=== PATIENT | male | born 1945 | race Caucasian/White ===

== ENCOUNTER → 2016-10-16 | Outpatient (CLI) | payer OTHER, MEDICARE ==
--- NOTE | 2016-10-16 11:47 | DI ---
XR ESOPHAGRAM,10/16/2016 9:07 AM: Clinical History: Chronic cough. Previous Exam: None at this facility. Findings: Multiple images from an esophagram are obtained, and demonstrate small bilateral pharyngeal pouches. There is no evidence of Zenker's diverticulum. There was some prolonged pooling of contrast within th e vallecula and to a lesser degree within the performed sinuses. There is no prominence of the cricopharyngeus muscle. There is no aspiration during the examination. The patient was able to swallow a 13 mm barium tablet without incident. The gastroesophageal junction appears normal and visualized portions of the upper gastric cardia are unremarkable. The supine swallowing exercise revealed very few contractions of the esophagus.. The patient required multiple swallows to clear the pharynx. The caliber of the pharyngeal esophageal junction was somewhat reduced. This also appeared to be slig htly displaced leftward. Impression: 1. Very weak esophageal contractions. This is most likely secondary to presbyesophagus. 2. Slight leftward deviation of the pharyngeal esophageal junction with some mild decreased caliber o f the pharynx at this level. There was no problem swallowing a 13 mm barium tablet and contents appea r to pass readily through this area however, cannot rule out the possibility of a small stricture or an external mass causing mass effect. Consider CT neck with contrast for further evaluation. 3. Small bilateral pharyngeal pouches.
== END ==
LOC: RAD 09:02
PROVIDERS: ATTEND Family Medicine
DX: R05 Cough (principal)
CPT/HCPCS: 74220

== ENCOUNTER 2018-10-05 05:45 | Inpatient (IN) ==
[2018-10-05] MEDS ORDERED: Clindamycin 900mg (Premix) 900 MG/50 ML BAG IV ONE ×2 (05:46→05:58)
[2018-10-05] MEDS ORDERED: Lactated Ringers 1,000 ML PRIMARY IV ONE ×4 (05:46→16:37)
[2018-10-05] MEDS ORDERED: LIDOCAINE W/ SODIUM BICARB 0.5 ML SYR ONE (05:47)
[2018-10-05] MEDS ORDERED: Ketorolac Inj 30 MG, Morphine Inj (Ortho Cocktail) 4 MG, BUPivacaine Inj 0.25% PF 150 MG SPLASH ONE ×3 (05:58)
[2018-10-05] MEDS ORDERED: LIDOCAINE W/ SODIUM BICARB 0.5 ML SYR SUBD PRN (05:58)
[2018-10-05] MEDS ORDERED: BUPivacaine Liposome/PF (Exparel) Inj 20ml vial INFIL ONE ×2 (05:58→07:07)
[2018-10-05] MEDS ORDERED: Lactated Ringers 1,000 ML PRIMARY IV SCH (06:00)
[2018-10-05] MEDS ORDERED: Nasal Sanitizer POPSWAB ampule 3 AMP (Nozin) PREOP DOSE ENOS SCH (06:00)
[2018-10-05] MEDS ORDERED: Tranexamic Acid 1,000 MG in Sodium Chloride 0.9% 100 ML IV SCH (06:00)
[2018-10-05 06:09] LABS: BILIRUBIN,URINE NEGATIVE (NEG); CLARITY,URINE CLEAR (CLEAR); COLOR,URINE YELLOW (Y); GLUCOSE, URINE (UA) NEGATIVE (NEG); OCCULT BLOOD,URINE NEGATIVE (NEG); PROTEIN,URINE NEGATIVE (NEG); UROBILINOGEN,URINE 0.2 EU/dL (0.2)
[2018-10-05 06:14] LABS: URINE SAMPLE TYPE CLEAN CATCH URINE
[2018-10-05 06:16] LABS: BACTERIA,URINE RARE; RBC,URINE 0-1 /hpf; WBC,URINE 0-2
[2018-10-05] MEDS ORDERED: Sodium Chloride 0.9% vial 40 ML ONE (07:06)
[2018-10-05] MEDS ORDERED: HEPARIN 10,000 UNIT/1 ML ONE (07:07)
[2018-10-05] MEDS ORDERED: Gentamicin Inj 40 MG/ML VIAL ONE ×2 (07:07→07:23)
[2018-10-05] MEDS ORDERED: Sodium Chloride 0.9% 500 ML ONE (07:13)
[2018-10-05] MEDS ORDERED: Sodium Chloride 0.9% 2,000 ML PRIMARY IV ONE (07:13)
[2018-10-05] MEDS ORDERED: EPINEPHrine Inj (1:1,000) 1 mg/ml amp ONE (07:20)
[2018-10-05] MEDS ORDERED: fentaNYL Inj 100 MCG/2 ML VIAL ONE (07:21)
[2018-10-05] MEDS ORDERED: MIDAZOLAM HCL 2 MG/2 ML VIAL ONE (07:21)
[2018-10-05] MEDS ORDERED: ePHEDrine Inj 50 MG/ML AMP ONE (07:40)
[2018-10-05] MEDS ORDERED: LIDOCAINE HCL 2 % 10 ML JELLY URO-JECT TOPICAL ONE ×2 (07:42→08:24)
[2018-10-05] MEDS ORDERED: PROPOFOL 10 MG/1 ML (200 MG/20 ML) VIAL IV ONE ×4 (08:06→10:38)
[2018-10-05] MEDS ORDERED: Hetastarch 6% + NS 500 ML IV ONE (08:06)
[2018-10-05] MEDS ORDERED: TRANEXAMIC ACID 1,000 MG / 10 ML VIAL ONE (08:27)
--- NOTE | 2018-10-05 08:49 | CRNA.PROCE ---
Central Neuraxis Block [place] - - Safety Measures: Time Out Taken, Site Verified - - Type of Block: Subarachnoid Reason for Block: Surgical Moniters Used During Block: EKG, SPO2, NIBP Sedation Used - Enter Amount Used in Comment Field: Midazolam (mg): Yes (2), Fentanyl (mcg): Yes (50) Positioning: Sitting Skin Prep Used: ChloroPrep (Twice) Draped: Yes Skin Infiltration - Enter Amount Used in Comment Field: 1% Xylocaine (mL): Yes (1.5) Introducer User: 23 Gauge Spinal Needle Used: 25 Duane 80 mm (1 pass clear, free flow csf. birefringance with injection/aspiration. Left side down lying times 20 min post injection of local anesthetic.) Local Anesthetic - Enter Amount Used in Comment Field: 0.75 % Bupivacaine with Dextrose (ml): Yes (2) Additive Used - Enter Amount Used in Comment Field: Epinephrine 1:1000 Needle Rinse (mL): Yes (yes) Anesthesia Time - Other Weight: 53.252 kg Height: 6 ft Body Mass Index (BMI): 15.9
--- NOTE | 2018-10-05 08:50 | CRNA.PROGR ---
Anesthesia Time - Procedure/Recovery Time Start Date: 10/05/18 End Date: 10/05/18 Anesthesia : Time In: 07:57 Anesthesia : Time Out: 11:05 Anesthesia : Total Time: 188 - Block Time Start Date: 10/05/18 End Date: 10/05/18 PreOp Block : Time In: 07:23 PreOp Block : Time Out: 07:33 PreOp Block : Total Time: 10 - Total Anesthesia Time Total Anesthesia Time (minutes): 198 - Other Weight: 53.252 kg Height: 6 ft Body Mass Index (BMI): 15.9 Physical Status: P2 Anesthesia Type: Spinal Block
--- NOTE | 2018-10-05 08:50 | CRNA.PROGR ---
Anesthesia Recovery Phase I - Post Anesthesia Evaluation Patient's Condition on Arrival in Phase I: Stable Patient's Condition on Arrival in Phase II: Stable (required glycopyrolate, and fluids . Mentation gradually cleared.)
--- NOTE | 2018-10-05 08:50 | CRNA.PROGR ---
Post Anesthesia Phase II - Post Anesthesia Phase II Patient Stable and Discharged To: Med/Surg Care Assumed By Surgeon: Parminder Munoz MD Temperature: 97.8 F Pulse Rate: 57 Respiratory Rate: 18 Blood Pressure: 114/71 Pulse Ox: 95 Total Joss Score at Discharge: 9 Post Anesthesia Discharge Criteria Met: Yes
[2018-10-05] MEDS ORDERED: ROCURONIUM 10 MG/1 ML - 5 ML VIAL IVP ONE (09:56)
--- NOTE | 2018-10-05 10:50 | ORTHO.OP ---
- - -: See Dictated Operative Report Procedure Codes - Hip Procedures Primary Hip Procedure: 99050 : DIMITRI (yara SULTANA assisted)
[2018-10-05] MEDS: GLYCOPYRROLATE 0.2 MG/1 ML VIAL IVP ONE ×2 (11:15→11:17)
[2018-10-05] MEDS ORDERED: GLYCOPYRROLATE 0.2 MG/1 ML VIAL ONE ×2 (11:46→11:54)
[2018-10-05] MEDS ORDERED: Ondansetron ODT Tab 8 MG TAB PO PRN (13:24)
[2018-10-05] MEDS ORDERED: CALCIUM CARBONATE 500 MG (TUMS) CHEWABLE TABLET PO PRN (13:24)
[2018-10-05] MEDS ORDERED: diphenhydrAMINE 25 MG CAPSULE PO PRN (13:24)
[2018-10-05] MEDS ORDERED: HYDROcodone-APAP 7.5 MG-325 MG TABLET PO PRN (13:24)
[2018-10-05] MEDS ORDERED: MAG HYDROX/AL HYDROX/SIMETH 30 ML SUSP PO PRN (13:24)
[2018-10-05] MEDS ORDERED: BISACODYL 5 MG TABLET PO PRN (13:24)
[2018-10-05] MEDS ORDERED: HYDROmorphone 2 MG/1 ML IVP PRN (13:24)
[2018-10-05] MEDS ORDERED: Prochlorperazine Tab 10 MG TAB PO PRN (13:24)
[2018-10-05] MEDS ORDERED: ONDANSETRON 4 MG/2 ML VIAL IVP PRN (13:24)
[2018-10-05] MEDS ORDERED: BISACODYL 10 MG SUPPOSITORY RECTAL PRN (13:24)
[2018-10-05] MEDS: Clindamycin 900mg (Premix) 900 MG/50 ML BAG IV SCH ×2 (14:44→20:43)
--- NOTE | 2018-10-05 14:52 | EKG ---
[address] [address] Measurements Intervals [place] Rate: 53 P: 81 DE: 169 QRS: 81 QRSD: 102 T: 99 QT: 433 QTc: 415 Interpretive Statements SINUS BRADYCARDIA WITH SINUS ARRHYTHMIA Compared to ECG 08/23/2015 20:52:29 Left ventricular hypertrophy no longer present Electronically Signed On 10-05-18 16:51:11 MDT by Raphael Zamora [email or web address]
--- NOTE | 2018-10-05 15:07 | CONSULT ---
Consult Note - Consult Reason for Consult: PostOp Consulation : Ortho Primary Care Provider: YOUNG CAMPBELL - History of Present Illness History of Present Illness: Is a very nice 73-year-old gentleman comes in for hip fracture and he is status post repair he is bradycardia at 38 bpm. Talking to his from I did remember located in the records that we send him to [place] 3 years ago for empyema he underwent lung surgery and also was seen in [facility] [place] he is Been on losing weight as well. According to his . He denies chest pain nausea or vomiting Past Medical History Medical History: Crohn's disease, but has been off of medication since early part of July. No complaints of any symptoms consistent with exacerbation. Surgical History: 1. Left shoulder surgery Pertinent Family History: Unknown. Past Social History: Does not smoke and did not smoke in the past. for 27 years. Works as a rancher. Has 1 adopted son who apparently is not very healthy. Drinks a glass of wine occasionally with dinner. Tobacco Use: Never Smoker Do you dip or chew tobacco: Yes In the Past 12 Months, Have Used or Abuse Any of the Following Substance: None Review of Systems - Review of Systems All Systems: Reviewed & No Additional Complaints Except as Stated - Respiratory Respiratory: DENIES: Negative System Review, Cough, Sputum, Dyspnea At Rest, Dyspnea with Exertion, Pleuritic Pain, Hemoptysis, Wheezing, Other, See HPI - Cardiovascular Cardiovascular: DENIES: Negative System Review, Chest Pain, Edema, Syncope, Palpitations, Orthopnea, Paroxysmal Nocturnal Dyspnea, Other, See HPI Medication / Allergies Home Medications: Home Medications Medication Instructions Recorded Confirmed doxycycline hyclate 50 mg capsule 50 mg PO QDAY 08/13/18 10/05/18 Allergies/Adverse Reactions: Allergies Allergy/AdvReac Type Severity Reaction Status Date / Time Penicillins Allergy RASH Verified 10/05/18 13:27 codeine AdvReac Anaphylaxis Verified 10/05/18 13:27 Exam - Vitals Vital Signs: Vital Signs Temperature 97.5 F Temperature Source Temporal Artery Scan Pulse Rate [Pulse Oximeter] 60 Pulse Rate 48 Respiratory Rate 16 Blood Pressure [Left Arm] 116/74 Blood Pressure 127/74 Pulse Ox 98 Oxygen Flow Rate 3.5 Oxygen Delivery Method Nasal Cannula Height 6 ft Weight 117 lb 6.4 oz - General General Appearance: No Acute Distress, Cooperative, Thin - Respiratory Respiratory Exam: POSITIVE: Clear to Auscultation - Bilaterally, Breathing Non Labored, Normal To Percussion, Normal to Percussion and Palpation - Cardiovascular Cardiovascular Exam: POSITIVE: Bradycardia - GI/Abdominal GI/Abdominal Exam: POSITIVE: Normal Bowel Sounds, Non Tender, Non Distended, Soft, No Masses, No Hepatomegaly, No Splenomegaly, No Organomegaly - Extremities Extremities Exam: POSITIVE: No Clubbing Present, No Edema Present, No Cyanosis Present Assessment and Plan - Patient Problems (1) Bradycardia Current Visit: Yes Status: Acute Comment: First-degree AV block on EKG. Tylenol for his bradycardia secondary to anesthesia he is not on beta blockers I will repeat a CTA of his chest considering his history, I will also get a troponin and a magnesium level Code(s): R00.1 - Bradycardia, unspecified
[2018-10-05 15:19] LABS: BLOOD UREA NITROGEN 14 mg/dL (7-22); BUN/CREATININE RATIO 23.33 (6-20); SERUM ALBUMIN 2.5 g/dL (3.5-4.8)
[2018-10-05] MEDS ORDERED: Magnesium Sulfate 2gm (Premix) 2 GM/50 ML BAG IV ONE (16:37)
[2018-10-05] MEDS: Lactated Ringers 1,000 ML PRIMARY IV SCH (18:01)
[2018-10-05] MEDS: ASPIRIN EC 81 MG TABLET PO SCH (21:45)
[2018-10-05] MEDS: DOCUSATE 100 MG CAPSULE PO SCH (21:46)
--- NOTE | 2018-10-05 22:37 | DI ---
EXAM: CT Chest With Intravenous Contrast CLINICAL HISTORY: ITS.REASON bradycardia post surgery Physician Notes: Tech Comments: TECHNIQUE: Axial computed tomography images of the chest with intravenous contrast. MIP reconstructed images were created and reviewed. COMPARISON: No relevant prior studies available. FINDINGS: Lungs: No pulmonary embolus. Patchy irregular infiltrate in the left lower lobe. Peribronchial thickening. Debris in the airways. Pleural space: Trace right pleural fluid. Heart: No cardiomegaly. No pericardial effusion. Mediastinum: Possibly mild thickening in segments of the esophagus. Bones/joints: No acute fracture. Spinal ankylosis. Soft tissues: Unremarkable. Vasculature: Unremarkable. No thoracic aortic aneurysm. Lymph nodes: Subcarinal node and small hilar nodes. Spleen: Splenectomy. Other findings: Exam from 10/05/18 at 1610 IMPRESSION: 1. No pulmonary embolus. 2. Patchy irregular infiltrate in the left lower lobe.
[2018-10-06] MEDS: Clindamycin 900mg (Premix) 900 MG/50 ML BAG IV SCH (02:03)
[2018-10-06] MEDS: Lactated Ringers 1,000 ML PRIMARY IV SCH ×3 (02:12→23:20)
[2018-10-06] MEDS: ACETAMINOPHEN 325 MG TABLET PO PRN ×2 (05:30→13:40)
--- NOTE | 2018-10-06 05:38 | DI ---
LEFT HIP, 10/05/2018 10:50 AM: Clinical History: Status post left total hip replacement. Osteoarthritis. Previous Exam: 08/13/2018. Views: AP and crosstable lateral views of replaced hip. Patient is status post left total hip replacement. Prosthetic joint articulates normally. Drain tube present. Reading: Status post left total hip replacement. Prosthetic joint articulates normally.
[2018-10-06 05:39] LABS: BASOPHILS # (AUTO) 0.03 10*3/UL; BASOPHILS % (AUTO) 0.2 % (0-1); BLOOD UREA NITROGEN 12 mg/dL (7-22); BUN/CREATININE RATIO 17.14 (6-20); EOSINOPHILS # (AUTO) 0.01 10*3/UL; EOSINOPHILS % (AUTO) 0.1 % (0-8); Hematocrit [HCT] 33.8 % (42.0-52.0); Hemoglobin [HGB] 10.8 g/dL (14.0-18.0); LYMPHOCYTES # (AUTO) 0.88 10*3/uL; MEAN CORPUSCULAR HEMOGLOBIN 31.4 PG (27-31); MEAN CORPUSCULAR VOLUME 98.3 FL (80-90); MEAN PLATELET VOLUME 10.9 FL (7.4-12.2); MONOCYTES # (AUTO) 1.62 10*3/UL (0.3-0.8); MONOCYTES % (AUTO) 11.7 % (5-15); NEUTROPHILS # (AUTO) 11.24 10*3/UL; NEUTROPHILS % (AUTO) 81.5 % (50-80); RED BLOOD COUNT 3.44 10^6/uL (4.70-6.10)
[2018-10-06 05:41] LABS: PLATELET MORPHOLOGY COMMENT NORMAL MORPHOLOGY (NORM); RBC MORPHOLOGY COMMENT NORMAL MORPHOLOGY (NORM); WBC MORPHOLOGY COMMENT NORMAL MORPHOLOGY (NORM)
--- NOTE | 2018-10-06 07:37 | ORTHO.PROG ---
Last Taken Vital Signs: Vital Signs - Last Taken Temperature 98.9 F 10/06/18 04:15 Pulse Rate 92 10/06/18 04:15 Respiratory Rate 20 10/06/18 04:15 Blood Pressure 97/55 10/06/18 04:15 Pulse Ox 90 10/06/18 05:18 Subjective: Patient has leg stiff this morning doesn't want to take any oral or IV narcotics if we can help it would like to just try to take Motrin and Tylenol Objective: Leg with pain popliteal adductor hiatus pain. Drain this morning with about 20 mL since 2 AM. Had a fair amount out yesterday and last PM bike today very little motor and sensory exam is good otherwise negative pressure dressing in place was no active issues. Laboratory Results 10/05/18 10/05/18 10/05/18 06:50 14:55 14:55 WBC RBC Hgb Hct MCV MCH MCHC RDW Std Deviation RDW Coeff of Michael Plt Count MPV Immature Gran % (Auto) Neut % (Auto) Lymph % (Auto) [place] % (Auto) Eos % (Auto) Baso % (Auto) Immature Gran # (Auto) Neut # (Auto) Lymph # (Auto) [place] # (Auto) Eos # (Auto) Baso # (Auto) WBC Morphology Comment Plt Morphology Comment RBC Morph Comment Sodium Potassium Chloride Carbon Dioxide Anion Gap BUN Creatinine Estimated GFR BUN/Creatinine Ratio Glucose Calculated Osmolality Calcium Magnesium 1.7 Total Bilirubin AST ALT Alkaline Phosphatase Troponin I < 0.012 Total Protein Albumin Globulin Albumin/Globulin Ratio Blood Type A POSITIVE Antibody Screen Negative 10/05/18 10/06/18 10/06/18 14:55 04:31 04:31 WBC 13.80 H RBC 3.44 L Hgb 10.8 L Hct 33.8 L MCV 98.3 H MCH 31.4 H MCHC 32.0 L RDW Std Deviation 47.4 RDW Coeff of Michael 13.7 Plt Count 317 MPV 10.9 Immature Gran % (Auto) 0.1 Neut % (Auto) 81.5 H Lymph % (Auto) 6.4 L [place] % (Auto) 11.7 Eos % (Auto) 0.1 Baso % (Auto) 0.2 Immature Gran # (Auto) 0.02 Neut # (Auto) 11.24 Lymph # (Auto) 0.88 [place] # (Auto) 1.62 H Eos # (Auto) 0.01 Baso # (Auto) 0.03 WBC Morphology Comment Normal morphology Plt Morphology Comment Normal morphology RBC Morph Comment Normal morphology Sodium 139 134 L Potassium 4.4 4.4 Chloride 109 103 Carbon Dioxide 28 28 Anion Gap 2 L 3 L BUN 14 12 Creatinine 0.6 L 0.7 Estimated GFR [employer] BUN/Creatinine Ratio 23.33 H 17.14 Glucose 69 L 105 Calculated Osmolality 286.0 277.0 Calcium 8.6 L 8.1 L Magnesium Total Bilirubin 0.2 L AST 27 ALT 24 Alkaline Phosphatase 49 Troponin I Total Protein 4.7 L Albumin 2.5 L Globulin 2.2 L Albumin/Globulin Ratio 1.10 L Blood Type Antibody Screen 10/06/18 04:31 WBC RBC Hgb Hct MCV MCH MCHC RDW Std Deviation RDW Coeff of Michael Plt Count MPV Immature Gran % (Auto) Neut % (Auto) Lymph % (Auto) [place] % (Auto) Eos % (Auto) Baso % (Auto) Immature Gran # (Auto) Neut # (Auto) Lymph # (Auto) [place] # (Auto) Eos # (Auto) Baso # (Auto) WBC Morphology Comment Plt Morphology Comment RBC Morph Comment Sodium Potassium Chloride Carbon Dioxide Anion Gap BUN Creatinine Estimated GFR BUN/Creatinine Ratio Glucose Calculated Osmolality Calcium Magnesium 1.9 Total Bilirubin AST ALT Alkaline Phosphatase Troponin I Total Protein Albumin Globulin Albumin/Globulin Ratio Blood Type Antibody Screen Vital Signs (24 hrs) 10/05/18 11:00 10/05/18 13:00 10/05/18 13:24 Temperature 95.2 F L 97.2 F 97.4 F Pulse Rate 42 L 48 L Pulse Rate [Pulse Oximeter] 50 L Respiratory Rate 14 14 16 Blood Pressure 94/62 127/74 Blood Pressure [Left Arm] 124/77 Pulse Ox 100 100 99 10/05/18 13:50 10/05/18 15:57 10/05/18 19:00 Temperature 97.5 F 97.5 F Pulse Rate Pulse Rate [Pulse Oximeter] 60 48 L Respiratory Rate 16 16 Blood Pressure Blood Pressure [Left Arm] 116/74 136/29 Pulse Ox 98 100 10/05/18 19:13 10/05/18 23:39 10/06/18 02:27 Temperature 98.1 F 98.9 F 98.3 F Pulse Rate Pulse Rate [Pulse Oximeter] 64 84 77 Respiratory Rate 20 18 16 Blood Pressure Blood Pressure [Left Arm] 98/52 88/48 104/62 Pulse Ox 96 94 96 10/06/18 04:15 10/06/18 05:18 Temperature 98.9 F Pulse Rate Pulse Rate [Pulse Oximeter] 92 Respiratory Rate 20 Blood Pressure Blood Pressure [Left Arm] 97/55 Pulse Ox 92 90 Assessment: Left total hip replacement overall doing well Anemia Bradycardia and generalized low blood pressure Plan: Appreciate hospitalist evaluation. Begin physical therapy today. Mobilize with PT and OT. Pain control as needed written for different medications.
[2018-10-06] MEDS: IBUPROFEN 400 MG TABLET PO PRN ×2 (08:48→21:16)
[2018-10-06] MEDS: ASPIRIN EC 81 MG TABLET PO SCH ×2 (08:49→21:11)
--- NOTE | 2018-10-06 10:19 | PDOC(PROG) ---
Interval History: Patient is doing well no chest pain no nausea no vomiting Objective : Data - Labs CBC and BMP: 10/06/18 04:31 10/06/18 04:31 Objective : Exam - General General Appearance: Cooperative - Respiratory Respiratory Exam: Clear to Auscultation - Bilaterally, Breathing Non Labored, Normal To Percussion, Normal to Percussion and Palpation - Cardiovascular Cardiovascular Exam: RRR, No Murmur, No Clicks, No Gallops, No Rubs, PMI Non- Displaced - GI/Abdominal GI/Abdominal Exam: Normal Bowel Sounds, Non Tender, Non Distended, Soft, No Masses, No Hepatomegaly, No Splenomegaly, No Organomegaly - Extremities Extremities Exam: No Clubbing Present, No Edema Present Assessment and Plan - Patient Problems (1) Bradycardia Current Visit: Yes Status: Acute Comment: Today the bradycardia is improved and received IV fluids. He did have a little infiltrate on the left lower lobe on CAT scan this is very hard to discern if pneumonia or not considering the patient had an empyema on that side. I recommended down IV antibiotics to treat the pneumonia since the he does have a white count with a left shift and considering the he status post VATS high risk for denise pneumonia. The patient and his refused the antibi otics and they wanted me to consult with Dr. Zambrano in the [place] told her about the patient since she knows of the other CT scans that he had a [employer] she also recommended antibiotics to treat the pneumonia. They also wanted me to call Dr. Miller infectious disease in [place] I did call the phone calls were also be performed with the patient present Dr. Zacarias recommended to may be weight today repeat the white count in the morning if it's trending up then treat with Rocephin and Zithromax and if it's trending down maybe hold off on the treatment for pneumonia at this point the patient does not look septic has no cough his oxygenation is well I will hold off in the burns with Dr. Miller's recommendation Code(s): R00.1 - Bradycardia, unspecified (2) Status post hip replacement Current Visit: Yes Status: Acute Comment: Deferred Dr. Munoz Code(s): Z96.649 - Presence of unspecified artificial hip joint
[2018-10-06] MEDS: DOCUSATE 100 MG CAPSULE PO SCH ×2 (10:46→21:11)
[2018-10-06] MEDS ORDERED: Lactated Ringers 1,000 ML PRIMARY IV ONE (12:01)
[2018-10-06] MEDS: Cefepime Inj 2 GM in Sodium Chloride 0.9% 100 ML IV SCH ×2 (13:30→21:11)
--- NOTE | 2018-10-06 15:32 | CRNA.PROGR ---
Anesthesia Note - Progress Notes Anesthesia Progress Note: See Dr Simms and Dr James notes re: bradycardia and low blood pressure. Intake and Output (24hr x 4 totals) 10/04/18 10/05/18 10/06/18 10/07/18 05:59 05:59 05:59 05:59 Intake Total 4460 / 4460 2219 / 2219 Output Total 2130 / 2130 1999 / 1999 Balance 2330 / 2330 219 / 219 CBC and BMP 10/06/18 04:31 10/06/18 04:31 Vital Signs - Last Taken Temperature 98.4 F 10/06/18 13:00 Pulse Rate 76 10/06/18 13:00 Respiratory Rate 20 10/06/18 13:00 Blood Pressure 88/45 10/06/18 13:00 Pulse Ox 92 10/06/18 13:00 He's hypovolemic. Have no explanation for bradycardia, neither does Dr. Simms.
--- NOTE | 2018-10-06 16:41 | DI ---
MRI BRAIN SCAN WITHOUT IV CONTRAST, 10/06/2018 12:04 PM: Clinical History: Left arm weakness. Prior Exam: None at this facility. Comparison Exam: None. Sequences: Sagittal [id number]; axial T2 weighted and FLAIR. Axial diffusion weighted images with ADC mapping. 4th Ventricle: Normal. 3rd Ventricle: Mildly dilated, but normal for age. Lateral Ventricles: Moderately dilated. Sella: Normal size and normal pituitary gland. Cerebrum: No acute hemorrhagic or bland infarct noted. Specifically, no abnormality is seen in the ri ght motor strip near the convexity where the motor homunculus location for the arm is located. Multip le less than 5 mm punctate hyperintensities are scattered through posterior hemispheres in the white matter. They are not in the typical pattern of small vessel ischemic disease. Cerebellum: Normal. No cerebellopontine angle mass. Cerebellar Tonsils: Normal position. Brainstem: Normal. Diffusion Weighted Imaging: Normal. Atrophy: Mild cerebellar and cerebral atrophy. Extracerebral Mantles/Midline Shift: No extracerebral mantle or dural lesion. No midline shift. Sinuses: Normal. Readin. No acute hemorrhagic or bland infarct noted. No abnormality in the motor strip where the fibers f or the left arm originate. 2. Multiple punctate white matter hyperintensities scattered diffusely throughout both hemispheres. The exact etiology for this finding is uncertain. 3. Mild cerebral and cerebellar atrophy.
[2018-10-07] MEDS: Cefepime Inj 2 GM in Sodium Chloride 0.9% 100 ML IV SCH ×3 (04:11→21:12)
[2018-10-07 05:08] LABS: BASOPHILS # (AUTO) 0.06 10*3/UL; BASOPHILS % (AUTO) 0.4 % (0-1); EOSINOPHILS # (AUTO) 0.06 10*3/UL; EOSINOPHILS % (AUTO) 0.4 % (0-8); Hemoglobin [HGB] 10.2 g/dL (14.0-18.0); LYMPHOCYTES # (AUTO) 1.48 10*3/uL; MEAN CORPUSCULAR HEMOGLOBIN 31.2 PG (27-31); MEAN CORPUSCULAR HGB CONC 31.9 g/dL (33-37); MEAN CORPUSCULAR VOLUME 97.9 FL (80-90); MEAN PLATELET VOLUME 11.1 FL (7.4-12.2); MONOCYTES # (AUTO) 1.91 10*3/UL (0.3-0.8); MONOCYTES % (AUTO) 12.5 % (5-15); NEUTROPHILS # (AUTO) 11.74 10*3/UL; NEUTROPHILS % (AUTO) 76.7 % (50-80); RED BLOOD COUNT 3.27 10^6/uL (4.70-6.10)
[2018-10-07 05:19] LABS: PLATELET MORPHOLOGY COMMENT NORMAL MORPHOLOGY (NORM); RBC MORPHOLOGY COMMENT NORMAL MORPHOLOGY (NORM); WBC MORPHOLOGY COMMENT NORMAL MORPHOLOGY (NORM)
[2018-10-07 05:25] LABS: BLOOD UREA NITROGEN 9 mg/dL (7-22); SERUM ALBUMIN 2.6 g/dL (3.5-4.8)
--- NOTE | 2018-10-07 07:45 | ORTHO.PROG ---
Last Taken Vital Signs: Vital Signs - Last Taken Temperature 98.3 F 10/07/18 06:31 Pulse Rate 84 10/07/18 06:31 Respiratory Rate 16 10/07/18 06:31 Blood Pressure 104/62 10/07/18 06:31 Pulse Ox 91 10/07/18 06:31 Subjective: Patient states he feels fine had a good night's sleep. He has not used any pain medication except for Tylenol or Motrin Objective: Examination left leg show that the negative pressure dressing is in place his drain came out has a very mild amount of swelling to the lower extremity no distal swelling or edema. Popliteal or adductor hiatus pain. Rotation of the foot and ankle look good. Motor and sensory exam is nonfocal. Laboratory Results 10/07/18 10/07/18 04:17 04:17 WBC 15.29 H RBC 3.27 L Hgb 10.2 L Hct 32.0 L MCV 97.9 H MCH 31.2 H MCHC 31.9 L RDW Std Deviation 47.2 RDW Coeff of Michael 13.7 Plt Count 296 MPV 11.1 Immature Gran % (Auto) 0.3 Neut % (Auto) 76.7 Lymph % (Auto) 9.7 L [place] % (Auto) 12.5 Eos % (Auto) 0.4 Baso % (Auto) 0.4 Immature Gran # (Auto) 0.04 Neut # (Auto) 11.74 Lymph # (Auto) 1.48 [place] # (Auto) 1.91 H Eos # (Auto) 0.06 Baso # (Auto) 0.06 WBC Morphology Comment Normal morphology Plt Morphology Comment Normal morphology RBC Morph Comment Normal morphology Sodium 138 Potassium 3.8 Chloride 108 Carbon Dioxide 27 Anion Gap 3 L BUN 9 Creatinine 0.6 L Estimated GFR Assistant [employer] BUN/Creatinine Ratio 15.00 Glucose 83 Calculated Osmolality 283.0 Calcium 8.6 L Total Bilirubin 0.5 AST 38 ALT 22 Alkaline Phosphatase 49 Total Protein 5.2 L Albumin 2.6 L Globulin 2.6 Albumin/Globulin Ratio 1.00 L Vital Signs (24 hrs) 10/06/18 09:00 10/06/18 11:47 10/06/18 13:00 Temperature 99 F 98.4 F Pulse Rate [Pulse Oximeter] 69 76 Respiratory Rate 20 20 Blood Pressure [Left Arm] 84/49 79/42 Blood Pressure [Right Arm] 88/45 Pulse Ox 96 92 10/06/18 17:00 10/06/18 19:00 10/06/18 20:48 Temperature 98.2 F 98.1 F Pulse Rate [Pulse Oximeter] 75 74 74 Respiratory Rate 16 16 16 Blood Pressure [Left Arm] Blood Pressure [Right Arm] 91/53 98/51 Pulse Ox 94 91 10/07/18 01:00 10/07/18 04:56 10/07/18 06:31 Temperature 98.7 F 98.9 F 98.3 F Pulse Rate [Pulse Oximeter] 72 84 84 Respiratory Rate 16 16 16 Blood Pressure [Left Arm] 104/62 Blood Pressure [Right Arm] 97/52 95/50 Pulse Ox 92 92 91 Assessment: Left total hip replacement Anemia Intermittent episodes of hypotension the patient states he has no symptoms during these episodes. Plan: Patient will continue to do exercise to help improve mobilization and strengthening. There are no physical therapy notes some not sure what might have been done. Patient states he has been up walking with a walker into the hallway him back in 6 exercises in the room but no formal physical therapy apparently. Pain control seems to be adequate Tylenol and Motrin. DVT prophylaxis with aspirin and pneumatic sequentials. Patient has had previous issue of empyema and there is questions of some degree of activation recurrence of this which is being worked up and evaluated.
[2018-10-07] MEDS: ASPIRIN EC 81 MG TABLET PO SCH ×2 (08:45→21:11)
[2018-10-07] MEDS: DOCUSATE 100 MG CAPSULE PO SCH ×2 (08:45→21:11)
[2018-10-07] MEDS: IBUPROFEN 400 MG TABLET PO PRN (08:45)
[2018-10-07] MEDS: Lactated Ringers 1,000 ML PRIMARY IV SCH (09:28)
--- NOTE | 2018-10-07 11:17 | PTI REPORT ---
Thank you for the referral of Alexander Arboleda. He was seen on 10/06/18 for an inpatient evaluation status post left total hip arthroplasty. SUBJECTIVE: The patient is a 73-year-old male. The patient reports that he lives with his about [place] [address] out of town. The patient reports that he has a couple of stairs to get into his home with bilateral handrails. Previously the patient was using a cane and was independent with ADLs. The patient's pain is minimal. PAST MEDICAL HISTORY: Past medical history can be found in the patient's medical record. OBJECTIVE FINDINGS: General observations: Nursing reports the patient's blood pressure has been low at 80/40s. The patient has a pump in and a Degroot catheter and is connected to an IV. The patient is partial weight-bearing per doctor's orders. Transfers: The patient transferred from sit to stand with contact guard assist x2 and walker and his blood pressure was 103/53. Ambulation: The patient required max cues for participation in partial weight- bearing and walker technique. The patient's gait was steady with contact guard assist x2. The patient's blood pressure post ambulation was 90s/50s. ASSESSMENT: The patient is a 73-year-old male status post left total hip arthroplasty. The patient would benefit from skilled therapy in order to improve functional mobility, strength, and overall endurance. The patient's prognosis for therapy is fair. Problem List: Decreased strength Decreased functional mobility Short-Term Goals: To be met by discharge from inpatient: Patient will be independent with all transfers with walker. Patient will be able to ambulate 150 feet with walker. Patient will be able to ascend and descend five stairs independently with walker. Long-Term Goals: To be met following discharge from inpatient: Patient would benefit to be seen by outpatient physical therapy. TREATMENT PLAN: Patient will be seen B.I.D during the week and one time per day over the weekend as an inpatient for therapeutic exercise, functional activity, neuromuscular reeducation, gait training, modalities as needed, and manual therapy. INITIAL TREATMENT: Treatment today consisted of the initial evaluation. The patient was instructed to ambulate approximately 50 feet with contact guard assist x2 and walker. The patient was returned to his chair with contact guard assist x2. The patient was left in chair with call light within reach and chair alarm activated. TINO
--- NOTE | 2018-10-07 11:45 | PDOC(PROG) ---
Interval History: Patient is doing much better he states he is more awake but dissipating physical therapy probably looking forward to going home. Objective : Data - Labs CBC and BMP: 10/07/18 04:17 10/07/18 04:17 Objective : Exam - General General Appearance: Cooperative - Respiratory Respiratory Exam: Clear to Auscultation - Bilaterally, Breathing Non Labored, Normal To Percussion, Normal to Percussion and Palpation - Cardiovascular Cardiovascular Exam: RRR, No Murmur, No Clicks, No Gallops, No Rubs, PMI Non- Displaced - GI/Abdominal GI/Abdominal Exam: Normal Bowel Sounds, Non Tender, Non Distended, Soft, No Masses, No Hepatomegaly, No Splenomegaly, No Organomegaly - Extremities Extremities Exam: No Clubbing Present, No Edema Present Assessment and Plan - Patient Problems (1) Bradycardia Current Visit: Yes Status: Acute Comment: Improved with IV fluids Code(s): R00.1 - Bradycardia, unspecified (2) Status post hip replacement Current Visit: Yes Status: Acute Comment: Deferred Dr. Munoz Code(s): Z96.649 - Presence of unspecified artificial hip joint (3) Pneumonia Current Visit: Yes Status: Acute Comment: Most likely at the site of the old empyema mild patient had a left shift and a white count then started getting hypotensive we have started antibiotics blood pressure is improved and left shift has resolved. Labs in a.m. Code(s): J18.9 - Pneumonia, unspecified organism
--- NOTE | 2018-10-07 12:00 | PT.PROG ---
Progress Note Progress Note: S: Pt. states he is doing pretty good today. O: Treatment consisted of functional activities: ambulated down to therapy clinic where he received moist heat to left hip followed by therapeutic exercises: qs, hs, bridges, mini sit ups, sit to stands x 10, box step ups x 10 with # 3 box. He then ambulated back to his room and was placed in recliner with nursing in the room. Did transfer him to a walker with wheels today and instructed in use. A: Pt. performed ambulation with less safety concerns with wheeled walker. He is willing to work. Strength improving. He does require cues for safety and impulsive. P: Continue per POC to increase strength and activity tolerance. Lulú Car, APPRENTICESHIP REPRESENTATIVE
--- NOTE | 2018-10-07 17:11 | OT.PROG ---
Progress Note Progress Note: S: pt stated that he felt that he was still getting over being under for the surgery. O: tx consisted of seated UE dressing tasks which pt completed independently, donning of LE underwear and pants with use of surveillance technician and MIN A, STS x1, completion of donning LE clothing and use of walker for stability. A: pt tolerated session well. pt is mildly impulsive and safety awareness was low today. P: continue POC
--- NOTE | 2018-10-07 17:13 | OT.PROG ---
Progress Note Progress Note: S: pt stated that he was fine and agreed to go to the therapy gym. O: tx consisted of UBE x4 min, UE RTB exercises in all planes of motion x15 each to pt pain tolerance. A: pt EROT is almost non existent at this time. pt was unable to complete motions and reports some mild pain. P: continue POC
--- NOTE | 2018-10-07 21:38 | DI ---
LEFT SHOULDER EXAM, 10/06/2018 1:45 PM: Clinical History: Left shoulder limited motion. Comparison Study: 10/14/2011. Views: 3 views. Soft Tissues: No soft tissue swelling. Effusion: No joint effusion present. Joints: Cartilaginous surfaces intact. Mild subluxation of the humeral head superiorly. Bones: No fracture or dislocation. Osteoporosis. Lung: The visualized portions of the left apex and lung are normal. Reading: Glenohumeral joint space. Mild subluxation of the humeral head superiorly. Osteoporosis.
[2018-10-08] MEDS: Cefepime Inj 2 GM in Sodium Chloride 0.9% 100 ML IV SCH (04:00)
[2018-10-08] MEDS: IBUPROFEN 400 MG TABLET PO PRN (06:46)
[2018-10-08 08:06] LABS: BASOPHILS # (AUTO) 0.02 10*3/UL; BASOPHILS % (AUTO) 0.1 % (0-1); EOSINOPHILS # (AUTO) 0.04 10*3/UL; EOSINOPHILS % (AUTO) 0.3 % (0-8); Hematocrit [HCT] 32.3 % (42.0-52.0); Hemoglobin [HGB] 10.6 g/dL (14.0-18.0); LYMPHOCYTES # (AUTO) 1.22 10*3/uL; MEAN CORPUSCULAR HEMOGLOBIN 31.7 PG (27-31); MEAN CORPUSCULAR HGB CONC 32.8 g/dL (33-37); MEAN CORPUSCULAR VOLUME 96.7 FL (80-90); MEAN PLATELET VOLUME 10.3 FL (7.4-12.2); MONOCYTES # (AUTO) 1.29 10*3/UL (0.3-0.8); NEUTROPHILS % (AUTO) 81.9 % (50-80); RED BLOOD COUNT 3.34 10^6/uL (4.70-6.10)
[2018-10-08] MEDS: ASPIRIN EC 81 MG TABLET PO SCH (08:35)
[2018-10-08 08:36] LABS: PLATELET MORPHOLOGY COMMENT NORMAL MORPHOLOGY (NORM); RBC MORPHOLOGY COMMENT NORMAL MORPHOLOGY (NORM); WBC MORPHOLOGY COMMENT NORMAL MORPHOLOGY (NORM)
--- NOTE | 2018-10-08 08:58 | ORTHO.PROG ---
Last Taken Vital Signs: Vital Signs - Last Taken Temperature 98.2 F 10/08/18 06:36 Pulse Rate 90 10/08/18 06:36 Respiratory Rate 20 10/08/18 06:36 Blood Pressure 112/64 10/08/18 06:36 Pulse Ox 92 10/08/18 06:36 Subjective: Patient sitting on edge of bed. Tells me that he feels "great". Getting ready go for a walk with therapy. Objective: Vital signs are stable patient is afebrile. MAXIMUM TEMPERATURE 99.1 last night. Left hip incision is dressed. Sitting comfortably. Left lower extremity with minimal swelling. Hemoglobin and hematocrit 10 and 32. White blood cell count 14,000 Assessment: Impression: Stable postop day 3 from left total hip. From an orthopedic standpoint seems to be doing very well. Plan: Plan: I will defer to Dr. Vera as to whether or not he can be discharged today. From an orthopedic standpoint, I think it would be very reasonable. He will follow-up with Dr. Munoz as scheduled.
[2018-10-08] MEDS ORDERED: DOXYCYCLINE HYCLATE 100 MG CAPSULE PO SCH (09:00)
[2018-10-08] MEDS: DOCUSATE 100 MG CAPSULE PO SCH (09:03)
--- NOTE | 2018-10-08 10:53 | PT.PROG ---
Progress Note Progress Note: PT Treatment Time: 20 minutes S: Patient reports minimal tenderness in hip with activity. O: Patient performed lower extremity strengthening activities. Patient performed 2 flights of stairs with walker on right side and railing on the left. Patient was educated on weight bearing status and safety with stairs. Patient ambulated back to hospital room and was left as requested in chair with call light and necessities within reach and chair alarm activated. Patient's was also present. A: Patient tolerated treatment session well and performed stairs safely. P: Continue per plan of care.
[2018-10-08 11:12] VITALS: BP 96/47; RESP 16; TEMP 97.7; O2SAT 97
--- NOTE | 2018-10-08 11:23 | DCSUMMARY ---
Hospitalization Summary Hospital Course: Final Discharge Diagnosis: Current Visit Problems Problem Status Onset Code Bradycardia Acute R00.1 Status post hip replacement Acute Z96.649 Pneumonia Acute J18.9 Past Medical History Medical History: Crohn's disease, but has been off of medication since early of July. No complaints of any symptoms consistent with exacerbation. Surgical History: 1. Left shoulder surgery Pertinent Family History: Unknown. Past Social History: Does not smoke and did not smoke in the past. for 27 years. Works as a rancher. Has 1 adopted son who apparently is not very healthy. Drinks a glass of wine occasionally with dinner. Tobacco Use: Never Smoker Do you dip or chew tobacco: Yes In the Past 12 Months, Have Used or Abuse Any of the Following Substance: None Diagnostic Data, Laboratory Data, and Procedures of Signifigance: Laboratory Results 10/08/18 08:00 WBC 14.40 H RBC 3.34 L Hgb 10.6 L Hct 32.3 L MCV 96.7 H MCH 31.7 H MCHC 32.8 L RDW Std Deviation 47.0 RDW Coeff of Michael 13.7 Plt Count 325 MPV 10.3 Immature Gran % (Auto) 0.2 Neut % (Auto) 81.9 H Lymph % (Auto) 8.5 L Weber % (Auto) 9.0 Eos % (Auto) 0.3 Baso % (Auto) 0.1 Immature Gran # (Auto) 0.03 Neut # (Auto) 11.80 Lymph # (Auto) 1.22 Weber # (Auto) 1.29 H Eos # (Auto) 0.04 Baso # (Auto) 0.02 WBC Morphology Comment Normal morphology Plt Morphology Comment Normal morphology RBC Morph Comment Normal morphology History and Physical pertinent to Admission: Course of Hospitalization: This very nice 73-year-old gentleman who was admitted the for hip replacement postop day 3. Developed some tachycardia hypotension and elevated white count CT scan revealed possible infiltrate on the side that he had an M Ida in the past patient was started on cefepime his tachycardia subsided the blood pressures normalized white count is improving patient is back in feeling his normal self. I've consult and with the infectious disease as well as her primary care physician during his stay. He will be discharged home today in stable and improved condition on doxycycline 100 mg by mouth twice a day for 5 more days. Prescription was called at [facility]. I explained everything in detail to the family is which is the main caregiver and the patient and they are very happy with the care and happy to be being discharged. On the date of discharge, the patient was examined: Gen.: No acute distress, alert, nontoxic Heart: Regular rate and rhythm, no murmurs, clicks, gallops, or rubs Lungs: Clear to auscultation bilaterally, breathing is nonlabored Abdomen/GI: Normal tones on auscultation, soft, nontender, nondistended Musculoskeletal/extremities: No clubbing, cyanosis, or edema Vitals reviewed and are listed below Vital Signs (24 hrs) 10/07/18 11:46 10/07/18 16:53 10/07/18 21:00 Temperature 98.2 F 98.6 F 99.1 F Pulse Rate [Pulse Oximeter] 79 77 98 Respiratory Rate 16 20 20 Blood Pressure [Left Arm] 98/57 Blood Pressure [Right Arm] 121/66 102/58 Pulse Ox 98 92 94 10/08/18 00:32 10/08/18 05:00 10/08/18 06:36 Temperature 98.7 F 98.8 F 98.2 F Pulse Rate [Pulse Oximeter] 101 H 98 90 Respiratory Rate 20 20 20 Blood Pressure [Left Arm] 112/64 Blood Pressure [Right Arm] 121/58 110/60 Pulse Ox 91 92 92 10/08/18 11:08 Temperature 97.7 F Pulse Rate [Pulse Oximeter] 82 Respiratory Rate 16 Blood Pressure [Left Arm] 96/47 Blood Pressure [Right Arm] Pulse Ox 97 Assessment and Plan: 1. As per discharge assessments above 2. Disposition: Home 3. Condition on discharge, stable and improved. 4. Diet: regular diet 5. Activities: resume normal activities 6. Follow-Up: 1. PCP 2. 7. Medications at the Time of Discharge: Home Medications Medication Instructions Recorded Confirmed doxycycline hyclate 50 mg capsule 50 mg PO QDAY 08/13/18 10/05/18 Acetaminophen [Tylenol] 325 - 650 mg PO Q4H PRN tab 10/07/18 Aspirin EC 81 mg PO BID tab 10/07/18 Ibuprofen [Motrin] 400 mg PO Q6H PRN tab 10/07/18 Doxycycline Hyclate [Vibramycin] 100 mg PO BID #10 cap 07/19/19 8. Time, care, counseling and coordination of care for this discharge is greater than 30 minutes. Exam - Vitals Vital Signs: Vital Signs Temperature 97.7 F Temperature Source Oral Pulse Rate [Pulse Oximeter] 82 Pulse Rate 48 Respiratory Rate 16 Blood Pressure [Right Arm] 110/60 Blood Pressure [Left Arm] 96/47 Blood Pressure 127/74 Pulse Ox 97 Oxygen Flow Rate 3 Oxygen Delivery Method Room Air Height 6 ft Weight 133 lb 1.6 oz Patient Problems - Patient Problem List (1) Bradycardia Current Visit: Yes Status: Acute Code(s): R00.1 - Bradycardia, unspecified Category: Medical (2) Status post hip replacement Current Visit: Yes Status: Acute Code(s): Z96.649 - Presence of unspecified artificial hip joint Category: Surgical (3) Pneumonia Current Visit: Yes Status: Acute Code(s): J18.9 - Pneumonia, unspecified organism Category: Medical
--- NOTE | 2018-10-08 12:07 | OTI REPORT ---
Thank you for the referral of Alexander Arboleda. He was seen on 10/06/18 for an occupational therapy inpatient evaluation status post left total hip arthroplasty. SUBJECTIVE: The patient is a 73-year-old male who is being seen secondary to having an anterior total hip replacement. The patient reports that prior to admission he was independent with ADLs and he did have some difficulty with dressing self. The patient reports that his shoulder is not working since he had surgery. He states his left arm was the good one; his right arm is the one with rotator cuff issues, but today he could not raise his left arm without extreme amounts of pain. He was only able to actively flex to 30 degrees. PAST MEDICAL HISTORY: Past medical history can be found in the patient's medical record. OBJECTIVE FINDINGS: Bed mobility: The patient was able to come from supine to sit with min assist to move lower extremities. Activities of daily living: While sitting edge of bed, the patient was educated and instructed in use of adaptive devices. He was instructed on how to doff socks with the pet ambassador and don them with the sock aide as well as don lower extremity clothing with the pet ambassador. The patient was issued a bath sponge, pet ambassador, sock aide, and shoe horn. Transfers: The patient was able to transfer from sit to stand with min assist. Ambulation: The patient did ambulate approximately 30 feet with partial weight- bearing. The patient did have a little bit of balance issues at first, but once he was cued to slow down he did better. ASSESSMENT: Problem List Decreased ability to complete ADLs Decreased ability to complete functional transfers Decreased upper extremity range of motion Short-Term Goals: To be met by discharge from inpatient: Patient will have full active range of motion of left upper extremity. Patient will be able to dress self with use of adaptive devices. Patient will complete safe transfers. Long-Term Goals: To be met following discharge from inpatient: Patient will return home demonstrating safety and independence with all ADLs and functional tasks. TREATMENT PLAN: Patient will be seen B.I.D during the week and one time per day over the weekend as an inpatient to address the above goals and objectives. INITIAL TREATMENT: Treatment today consisted of the initial evaluation followed by instruction in adaptive devices. The patient was issued adaptive devices. The patient did demonstrate some balance difficulties with functional tasks and needed instruction in self active range of motion for his left upper extremity which is demonstrating rotator cuff etiology. TINO
--- NOTE | 2018-10-08 12:42 | PT PM DAY ---
Diagnosis : Left Total Hip Arthroplasty PM - Physical Therapy S: The patient has no complaints. He states he is feeling pretty good. O: The patient is able to ambulate all the way down to therapy with walker and contact guard assist. Once in therapy the patient received an application of moist heat pack x20 minutes including set up to the left hip. He performed therapeutic exercises and functional activities including supine ankle pumps and heel slides. He then transferred to edge of bed where he completes low marching, ankle pumps, and resisted knee flexion. The patient then ambulated back up to his room with walker and contact guard assist. A: The patient does very well. He is very impulsive and he tries to transfer and walk without someone helping him. P: Continue seeing patient BID during the week and one time per day over the weekend for transfers, ambulation, and range of motion/strengthening exercises. MTDD
--- NOTE | 2018-10-08 14:53 | OT AM DAY ---
Diagnosis : Left Total Hip Arthroplasty AM - Occupational Therapy S: The patient reports that his hip feels a little stiff. The patient and his are ready to head home this afternoon as long as he is medically cleared. O: The patient was able to come from supine to sit with min assist. He still has decreased upper extremity strength to be able to push up off of a flat surface. Today the patient was able to move left upper extremity within normal limits compared to yesterday where he wasn't able to activate function at all, so this is an improvement. Today the patient completed a sponge bath with min assist for back and lower extremities. The patient dressed self with adaptive devices and worked on standing balance. The patient was able to use the refinery operator polymerization plant and the sock aide to dress lower extremities independently. The patient transferred from sit to stand with contact guard assist and was able to pull pants to waist level. The patient ambulated to the sink to complete hygiene activities. A: The patient did well with adaptive devices and is doing well enough to return home. P: Patient will be discharged to home. TINO
== END 2018-10-08 13:47 | disposition home or self-care (01) | DRG 469 ==
LOC: OPS 05:45 → MED/SURG 13:11
PROVIDERS: ADMIT Orthopaedic Surgery; ATTEND Orthopaedic Surgery